=== PATIENT | male | born 1960 | race Caucasian/White ===

== ENCOUNTER 2019-07-10 09:15 | Day surgery (SDC) | payer BC ==
--- NOTE | 2019-07-07 13:42 | HP ---
PREOPERATIVE HISTORY AND PHYSICAL: DATE OF ADMISSION/SURGERY: 07/10/19 DATE OF OFFICE VISIT: 07/02/19 ATTENDING SURGEON: Dr. Jorge England.* (DICTATED BY MADISON CHEN) PROCEDURE: Left shoulder open excision, distal clavicle. CHIEF COMPLAINT: Left shoulder pain. HISTORY OF PRESENT ILLNESS: Gaurav is a 59-year-old male who presents to the clinic with left shoulder pain due to AC joint arthritis. He has failed conservative measures to include an injection and has therefore agreed to undergo a left shoulder open excision of distal clavicle with Dr. England on . PAST MEDICAL HISTORY: Stroke in the past that was found incidentally on an MRI after a fall off of a ladder, bilateral hearing aids, and GERD. PAST SURGICAL HISTORY: Five to six myringotomies as a kid, right shoulder, cataracts bilaterally. MEDICATIONS: 1. Naproxen 500 mg every 12 hours as needed for pain. 2. Diclofenac 75 mg 1 twice a day as needed for pain. 3. Omeprazole 20 mg once daily. 4. Zolpidem 10 mg once a day. ALLERGIES: No known drug allergies. FAMILY HISTORY: Denies pertinent family history. 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 He is . He denies tobacco use. He reports occasional alcohol consumption. He is right-hand dominant. REVIEW OF SYSTEMS: A 14-point review of systems was reviewed with the patient. Positive for current complaint, otherwise negative. Denies fever, chills, chest pain, shortness of breath, history of bleeding disorder, history of DVT or PE. PHYSICAL EXAMINATION GENERAL: A 59-year-old well-developed, well-nourished male, in no acute distress. VITAL SIGNS: Height 69, weight 233. Pulse 68, blood pressure 128/72, respiratory rate 20, BMI 34.4. HEENT: Normocephalic, atraumatic. PERRLA. NECK: Supple. Throat clear. PULMONARY: Lungs are clear to auscultation bilaterally. No wheezing, rhonchi, or rales. CARDIO: Regular rate and rhythm. S1 and S2. No murmurs, gallops, or rubs. No edema. ABDOMEN: Positive bowel sounds. Soft and nontender. NEUROLOGIC: Alert and oriented x3. Cranial nerves grossly intact. MUSCULOSKELETAL: Left upper extremity: Skin is intact. No warmth or erythema. Tenderness to palpation over the AC joint. Pain with cross body adduction. Mildly positive impingement, speed, [place], [place]. Forward flexion and abduction to 180, external rotation to 75, internal rotation to T8. Full range of motion of elbow, wrist and hand. +2 radial pulse. Sensation intact to light touch distally. DIAGNOSTIC STUDIES/LAB DATA: Multiple view x-rays revealed AC joint arthritis. PLAN/RECOMMENDATIONS: The patient is scheduled to undergo a left shoulder open excision of distal clavicle with Dr. England on 07/10/19. Percocet will be used for postop pain management. He will follow up in 10 to 14 days postop for followup and suture removal. MADISON CHEN [id number]/[facility] #: [id number] MTDJaycee
[~2019-07-10 09:15] MED LIST: DiMENhydriNATE IV* 50 MG/ML VIAL IV PUSH PRN; Naloxone* 0.4 MG/ML 1 ML VIAL IV PRN; PROCHLORPERAZINE INJ 5 MG/ML 2 ML VIAL IV PRN; Scopolamine 1.5 mg* PATCH TRANSDERM PRN
[2019-07-10] MEDS ORDERED: Buffered Lidocaine 1% SYRIN* 1 ML/SYRINGE INTRADERM ONE ×2 (09:35→11:10)
[2019-07-10] MEDS ORDERED: Famotidine IV* 10 MG/ML 2 ML (20 mg) ONE (09:35)
[2019-07-10] MEDS ORDERED: Ondansetron ODT TAB* 4 MG ONE (09:35)
[2019-07-10] MEDS ORDERED: Dexamethasone TAB* 4 MG ONE (09:35)
[2019-07-10] MEDS ORDERED: ceFAZolin 2 GM in NS PREMIX(*) 2 GM/100 ML BAG IVPB ONE (09:36)
[2019-07-10] MEDS ORDERED: KETAMINE HCL* 50 MG/ML 10 ML VIAL ONE (09:52)
[2019-07-10] MEDS ORDERED: fentaNYL* 50 MCG/ML 2 ML VIAL (100 MCG VIAL) ONE ×3 (09:52→14:11)
[2019-07-10] MEDS ORDERED: Midazolam* 1 MG/ML 5 ML VIAL (5 MG) ONE (09:52)
[2019-07-10] MEDS ORDERED: Dexamethasone TAB* 4 MG PO ONE (11:10)
[2019-07-10] MEDS ORDERED: Ondansetron ODT TAB* 4 MG PO ONE (11:10)
[2019-07-10] MEDS ORDERED: Famotidine IV* 10 MG/ML 2 ML (20 mg) IV ONE (11:10)
[2019-07-10] MEDS ORDERED: Bupivacaine 0.25% EPI 200,000* 30 ML SDV ONE (11:40)
[2019-07-10] MEDS ORDERED: Lactated Ringers 1000 ML Bag* 1,000 ML IV SCH (12:00)
[2019-07-10] MEDS ORDERED: Acetaminophen IV 1GM/100ML * 100 ML ONE (12:18)
[2019-07-10] MEDS ORDERED: Lidocaine 2% PF * 5 ML VIAL ONE (12:18)
[2019-07-10] MEDS ORDERED: Ketorolac INJ* 30 MG/ML 1 ML VIAL ONE (12:31)
[2019-07-10] MEDS ORDERED: Propofol* 10 MG/ML 20 ML BTL ONE (12:31)
[2019-07-10] MEDS ORDERED: Labetalol IV* 5 MG/ML 20 ML VIAL ONE (12:32)
[2019-07-10] MEDS ORDERED: HYDROmorphone INJ1* 1 MG/ML SYRINGE ONE ×2 (13:10→14:40)
[2019-07-10] MEDS: HYDROmorphone INJ1* 1 MG/ML SYRINGE IV PRN ×5 (13:11→13:40)
[2019-07-10] MEDS: fentaNYL* 50 MCG/ML 2 ML VIAL (100 MCG VIAL) IV PRN ×5 (13:24→14:11)
[2019-07-10] MEDS ORDERED: oxyCODONE TAB* 5 MG TAB ONE (13:48)
[2019-07-10] MEDS: oxyCODONE TAB* 5 MG TAB PO PRN ×2 (13:53→13:54)
--- NOTE | 2019-07-10 14:05 | OP ---
DATE OF OPERATION: 07/10/19 - [facility] DATE OF : 58 SURGEON: Jorge England MD GRADER MEAT: MADISON Cortes. An assistant plant manager was needed for the entirety of the case to help with positioning, retraction, and was utilized throughout all portions of the case. ANESTHESIOLOGIST: Dr. Chery. ANESTHESIA: General. PRE-OP DIAGNOSIS: Left acromioclavicular joint arthritis. POST-OP DIAGNOSIS: Left acromioclavicular joint arthritis. OPERATIVE PROCEDURE: Left open distal clavicle excision. COMPLICATIONS: None. ESTIMATED BLOOD LOSS: About 25 cc. DISPOSITION: Stable. INDICATIONS: Gaurav jay is a 59-year-old male with persistent AC joint arthritis. He has failed conservative management including physical therapy, anti- inflammatories, and injections. He has elected to proceed with surgical treatment. Risks and benefits were discussed in length and included, but are not limited to bleeding; infection; damage to nerves, vessels, surrounding structures; wound nonhealing; persistent pain; need for further surgery; scarring; stiffness; incomplete relief of symptoms; risks of anesthesia. DESCRIPTION OF PROCEDURE: The patient was greeted in the preoperative area by the attending surgeon. Correct extremity was marked and consent was confirmed. The patient was brought back to the operating suite where he was placed in supine position on the operating table. He then underwent general anesthesia with LMA intubation, after which he was placed in lazy beach-chair position. All bony prominences were padded. He was secured with a pegboard. The left shoulder was then prepped and draped in the usual sterile fashion beginning with chlorhexidine soap, scrub, and alcohol wipe, and a final prep with ChloraPrep. After appropriate surgical pause indicating side, site, procedure, and administration of antibiotics, the 15-blade was used to make a saber incision about the end of the clavicle. Soft tissues were carefully dissected to expose the AC joint capsule, which was incised longitudinally. Flaps were taken about the anterior and posterior aspects of the clavicle and then the distal aspect was exposed. Approximately 1 cm was marked out with a ruler and then excised using the sagittal saw. Care was taken not to damage any of the CC ligaments or other ligaments. The edges of the clavicle were then rasped. Any soft tissue was removed. There was no evidence of calcification that was present. The wounds were then copiously irrigated. The AC joint capsule was closed with 0 Vicryl in an interrupted fashion. The skin was closed in layers with 3-0 Monocryl and 3-0 nylon in a running fashion. Sterile dressings were applied and a regular sling was applied. He was awoken from anesthesia and transferred to the PACU in stable condition. POSTOPERATIVE PLAN: He will be nonweightbearing. Range of motion as tolerated. Discharged on pain medication. DVT prophylaxis was considered, but deferred due to no previous personal or family history. I will see the patient back in 10 to 14 days. [id number]/[facility] #: [id number] REMA
[2019-07-10 15:25] VITALS: BP 129/95
[2019-07-13] MEDS ORDERED: Scopolamine PATCH Remove* 1 NOTE MISC PATCH OFF ONE (05:50)
== END 2019-07-10 15:30 | disposition home or self-care (01) ==
LOC: OR 09:15
PROVIDERS: ATTEND Orthopaedic Surgery
DX: M19.212 Secondary osteoarthritis, left shoulder (principal); K21.9 Gastro-esophageal reflux disease without esophagitis; Z86.73 Personal history of transient ischemic attack (TIA), and cerebral infarction without residual deficits
CPT/HCPCS: A9270-GY; J0690; J1170; J1885; J2250; J2704; J3010; J8540

== ENCOUNTER 2019-08-10 10:16 | Day surgery (SDC) | payer BC ==
[~2019-08-10 10:16] MED LIST changes: +Buffered Lidocaine 1% SYRIN* 1 ML/SYRINGE INTRADERM ONE; +Dexamethasone IV* 4 MG/ML 1 ML (4 MG) IV SLOW PU ONE; -DiMENhydriNATE IV* 50 MG/ML VIAL IV PUSH PRN; +Lactated Ringers 1000 ML Bag* 1,000 ML IV SCH; -Naloxone* 0.4 MG/ML 1 ML VIAL IV PRN; -PROCHLORPERAZINE INJ 5 MG/ML 2 ML VIAL IV PRN; -Scopolamine 1.5 mg* PATCH TRANSDERM PRN
[2019-08-10] MEDS ORDERED: Dexamethasone IV* 4 MG/ML 1 ML (4 MG) ONE (10:45)
[2019-08-10] MEDS ORDERED: ceFAZolin 2 GM in NS PREMIX(*) 2 GM/100 ML BAG IVPB ONE (10:45)
[2019-08-10] MEDS ORDERED: Buffered Lidocaine 1% SYRIN* 1 ML/SYRINGE INTRADERM ONE (10:45)
[2019-08-10] MEDS ORDERED: Bupivacaine 0.25% EPI 200,000* 30 ML SDV ONE (13:44)
[2019-08-10] MEDS ORDERED: fentaNYL* 50 MCG/ML 5 ML VIAL (250 MCG VIAL) ONE (14:00)
[2019-08-10] MEDS ORDERED: Rocuronium* 10 MG/ML VIAL ONE (14:00)
[2019-08-10] MEDS ORDERED: Midazolam* 1 MG/ML 5 ML VIAL (5 MG) ONE (14:00)
[2019-08-10] MEDS ORDERED: Lidocaine 2% PF * 5 ML VIAL ONE (14:01)
[2019-08-10] MEDS ORDERED: Ondansetron INJ* 2 MG/ML VIAL ONE (14:01)
[2019-08-10] MEDS ORDERED: Ketorolac INJ* 30 MG/ML 1 ML VIAL ONE (14:01)
[2019-08-10] MEDS ORDERED: Propofol* 10 MG/ML 20 ML BTL ONE (14:01)
[2019-08-10] MEDS ORDERED: Sugammadex * 200 MG/2 ML VIAL IV PUSH ONE (14:27)
[2019-08-10] MEDS ORDERED: Naloxone* 0.4 MG/ML 1 ML VIAL IV PRN (14:42)
[2019-08-10] MEDS ORDERED: HYDROmorphone INJ1* 1 MG/ML SYRINGE IV PRN (14:42)
[2019-08-10] MEDS ORDERED: DiMENhydriNATE IV* 50 MG/ML VIAL IV PUSH PRN (14:42)
[2019-08-10] MEDS ORDERED: fentaNYL* 50 MCG/ML 2 ML VIAL (100 MCG VIAL) IV PRN (14:42)
[2019-08-10] MEDS ORDERED: oxyCODONE/Acetamin 5/325 MG* TAB PO PRN (14:42)
[2019-08-10] MEDS ORDERED: Ondansetron INJ* 2 MG/ML VIAL IV PRN (14:42)
[2019-08-10 16:19] VITALS: BP 124/77
--- NOTE | 2019-08-11 03:44 | OP ---
OPERATIVE REPORT: DATE OF OPERATION: 08/10/19 DATE OF : 58 SURGEON: Jorge England MD ENGINEERING AIDE: MADISON Mckeon An health education assistant was needed for the entirety of the case to help with positioning, retraction, and was utilized throughout all portions of the case. ANESTHESIOLOGIST: Dr. Rojo. ANESTHESIA: General. PRE-OP DIAGNOSIS: Right shoulder acromioclavicular joint arthritis. POST-OP DIAGNOSIS: Right shoulder acromioclavicular joint arthritis. OPERATIVE PROCEDURE: Right shoulder open distal clavicle excision. INDICATIONS: Gaurav Vital is a 59-year-old male with right-sided AC joint arthritis. He has failed conservative treatment including physical therapy, antiinflammatories, ice, heat, and injections. He would like to proceed with surgical treatment. Risks and benefits were discussed at length included, but not limited to, bleeding; infection; damage to nerves, vessels, surrounding structures; wound nonhealing; persistent pain; need for further surgery; scarring; stiffness; incomplete relief of symptoms; risk of anesthesia. COMPLICATIONS: None. ESTIMATED BLOOD LOSS: 25 cc. DISPOSITION: Stable. DESCRIPTION OF PROCEDURE: The patient was greeted in the preoperative area by the attending surgeon. Correct extremity was marked. Consent was confirmed. The patient was brought back to the operating suite where he was placed in supine position on the operating table, then underwent general anesthesia and endotracheal intubation, after which he was properly positioned in lazy beach chair position. All bony prominences were padded and secured. The right shoulder was then prepped and draped in usual sterile fashion beginning with chlorhexidine soap, scrub, and alcohol wipe and final prep with ChloraPrep. After appropriate surgical pause indicating site, side, procedure, administration of antibiotics, a standard saber incision was then made over the distal clavicle. With a 15-blade, soft tissue was carefully dissected to expose the AC joint once this was incised longitudinally. The dissection was taken around the distal aspect of the clavicle and the wound anteriorly and posteriorly. The distal 10 mm was then measured using a ruler and then provisionally marked. A sagittal saw was then used to perform the distal clavicle excision. The piece was removed in its entirety. The edges were then rasped and the space was checked by moving the shoulder cross body adduction. There was no evidence of impingement any further. The wounds were copiously irrigated with sterile saline. Hemostasis was maintained using the electrocautery device. The AC joint capsule was then closed using 0 Vicryl in an interrupted fashion. The skin was closed with in layers with 3-0 Monocryl and 3-0 nylon in running fashion. Sterile dressings were applied. The wound was copiously irrigated with 0.25% Marcaine. Sterile dressings were applied and a regular sling. The patient was awoken from anesthesia and transferred to the PACU in stable condition. POSTOPERATIVE PLAN: He will be nonweightbearing. Range of motion as tolerated. Discharged on pain medication, antibiotics due to previous shoulder scope. I will see this patient back in 7 to 14 days. [id number]/[facility] #: [id number] REMA
== END 2019-08-10 16:20 | disposition home or self-care (01) ==
LOC: OR 10:16
PROVIDERS: ATTEND Orthopaedic Surgery
DX: M19.011 Primary osteoarthritis, right shoulder (principal); K21.9 Gastro-esophageal reflux disease without esophagitis; I10 Essential (primary) hypertension; Z86.73 Personal history of transient ischemic attack (TIA), and cerebral infarction without residual deficits; F31.9 Bipolar disorder, unspecified
CPT/HCPCS: J0690; J1100; J1885; J2250; J2405; J2704; J3010

== ENCOUNTER 2021-07-25 10:24 | Inpatient (IN) ==
[~2021-07-25 10:24] MED LIST changes: +Buffered Lidocaine 1% SYRIN 1 ml INTRADERM ONE; -Buffered Lidocaine 1% SYRIN* 1 ML/SYRINGE INTRADERM ONE; -Dexamethasone IV* 4 MG/ML 1 ML (4 MG) IV SLOW PU ONE; -Lactated Ringers 1000 ML Bag* 1,000 ML IV SCH; +Lactated Ringers 1000 ml BAG 1,000 ML IV SCH
[2021-07-25] MEDS ORDERED: Sodium Citrate/Citric Acid LIQ 15 ML UDC PO ONE (10:55)
[2021-07-25] MEDS ORDERED: Sodium Citrate/Citric Acid LIQ 15 ML UDC ONE (11:48)
[2021-07-25] MEDS ORDERED: Heparin 5000 UNITS/ML 1 mL VIAL ONE (11:48)
[2021-07-25] MEDS ORDERED: ceFAZolin 1 GM ADVAN 1 GM ADDV.VIAL IVPB ONE (11:48)
[2021-07-25] MEDS ORDERED: Succinylcholine 200 mg VIAL 20 mg/ml 10 ml VIAL (200 mg) ONE (11:49)
[2021-07-25] MEDS ORDERED: Lidocaine 2% PF 5 ML VIAL ONE (11:49)
[2021-07-25] MEDS ORDERED: Ondansetron 4 mg VIAL 2 MG/ML 2 ml VIAL ONE (11:49)
[2021-07-25] MEDS ORDERED: Rocuronium 50 mg VIAL 10 mg/ml 5 ml VIAL (50 mg) ONE ×2 (11:49→13:58)
[2021-07-25] MEDS ORDERED: Midazolam 2 mg/2 ml VIAL 1 mg/ml 2 ml VIAL (2 mg) ONE (11:49)
[2021-07-25] MEDS ORDERED: Dexamethasone IV 4 MG/ML VIAL 1 ml VIAL ONE (11:49)
[2021-07-25] MEDS ORDERED: Propofol 10 MG/ML 20 ML BTL ONE (11:49)
[2021-07-25] MEDS ORDERED: fentaNYL 100 mcg/2 ml 50 MCG/ML VIAL ONE (11:49)
[2021-07-25] MEDS ORDERED: Bupivacaine 0.5% SDV PF 30ML VIAL ONE (12:04)
[2021-07-25] MEDS ORDERED: Lidocaine 1% w EPI 1:100,000 MDV 20 ML VIAL ONE (12:04)
[2021-07-25] MEDS ORDERED: Methylene Blue 0.5 % 50 MG/10 ML AMP IV ONE (12:04)
[2021-07-25] MEDS ORDERED: EPHEDrine (Pressors) 50 MG/ML VIAL ONE (13:03)
[2021-07-25] MEDS ORDERED: HYDROmorphone 0.5 MG/0.5 ML SYRINGE ONE ×3 (13:59→15:49)
[2021-07-25] MEDS ORDERED: HYDROcodone/ACET. 7.5/325 LIQ 15 ML UDC PO PRN (14:52)
[2021-07-25] MEDS ORDERED: Ondansetron 4 mg VIAL 2 MG/ML 2 ml VIAL IV PRN (14:52)
[2021-07-25] MEDS ORDERED: HYDROmorphone 0.5 MG/0.5 ML SYRINGE IV SLOW PU PRN (14:52)
[2021-07-25] MEDS ORDERED: Neostigmine Methylsulfate 1 MG/ML 10 ML VIAL (1 mg/ml) ONE (15:10)
[2021-07-25] MEDS ORDERED: Phenylephrine IV 10 MG/ML 1 ml VIAL ONE (15:10)
[2021-07-25] MEDS ORDERED: Prochlorperazine 5 mg/ml 2 ml VIAL (10 mg) IV PRN (15:36)
[2021-07-25] MEDS ORDERED: diPHENhydraMINE IV 50 MG/ML 1 ml VIAL (BENADRYL) IV PRN (15:36)
[2021-07-25] MEDS ORDERED: HYDROmorphone 1 MG/1 ML SYRINGE IV PRN (15:36)
[2021-07-25] MEDS ORDERED: Naloxone 0.4 mg VIAL 0.4 mg/ml 1 ml VIAL IV PRN (15:36)
[2021-07-25] MEDS: Lactated Ringers 1000 ml BAG 1,000 ML IV SCH (16:18)
[2021-07-25] MEDS: Heparin 5000 UNITS/ML 1 mL VIAL SUBCUT SCH (21:30)
[2021-07-26] MEDS: Lactated Ringers 1000 ml BAG 1,000 ML IV SCH (02:53)
[2021-07-26] MEDS: Heparin 5000 UNITS/ML 1 mL VIAL SUBCUT SCH ×2 (05:14→14:31)
[2021-07-26 13:26] VITALS: BP 128/60
[2021-07-26] MEDS ORDERED: D5W 1/2 NS KCl 20 meq 1000 ml 1,000 ML IV SCH (15:00)
[2021-07-28] MEDS ORDERED: Scopolamine PATCH Remove NOTE PATCH OFF ONE (06:00)
== END 2021-07-26 15:25 | disposition home or self-care (01) | DRG 403 ==
LOC: AA 10:24 → SSU 16:15
PROVIDERS: ADMIT Surgery; ATTEND Surgery